=== PATIENT | female | born 1980 | race African-American/Black ===

== ENCOUNTER 2017-10-06 23:06 | Emergency (ER) | payer OTHER ==
[~2017-10-06] VITALS: Ht 157.5 cm; Wt 81.7 kg
[2017-10-07] MEDS ORDERED: IBUPROFEN 800800 M1 PO (01:04)
[2017-10-07 01:50] VITALS: BP 120/60
== END 2017-10-07 01:52 | disposition home or self-care (01) ==
LOC: ER 23:06
DX: J02.9 Acute pharyngitis, unspecified (principal)

== ENCOUNTER 2019-04-16 22:08 | Emergency (ER) | payer OTHER ==
[~2019-04-16] VITALS: Ht 167.6 cm; Wt 77.1 kg
[~2019-04-16 22:08] MED LIST: IBUPROFEN 800800 M1 PO
[2019-04-16 23:22] LABS: ABSOLUTE NEUTROPHILS 2.9 thou/uL (1.4-8.2); BASOPHILS 1.2 % (0.0-2.0); EOSINOPHILS 1.7 % (0.0-3.0); HEMATOCRIT 38.8 % (37.0-47.0); HEMOGLOBIN 13.2 gm/dL (12.0-15.0); LYMPHOCYTES 40.3 % (24.0-44.0); MCH 29.7 pg (26.0-34.0); MCHC 34.1 g/dL (28.0-37.0); MONOCYTES 5.1 % (1.0-8.0); PLATELET COUNT 271 thou/uL (150-400); POLYS 51.7 % (36.0-66.0); RBC 4.46 mil/uL (4.20-5.00); RDW 13.2 % (10.5-14.5); WBC 5.7 thou/uL (4.0-11.0)
[2019-04-16 23:26] LABS: ANION GAP 9 mmol/L (7-16); BUN 9 mg/dL (7-18); CALCIUM 9.4 mg/dL (8.5-10.1); CHLORIDE 103 mmol/L (98-107); CO2 27 mmol/L (21-32); CREATININE 0.8 mg/dL (0.6-1.0); GLUCOSE 88 mg/dL (74-106); POTASSIUM 3.5 mmol/L (3.5-5.1); SODIUM 139 mmol/L (136-145)
[2019-04-16 23:35] LABS: TROPONIN-I <0.06 ng/mL (<0.06)
[2019-04-17] MEDS ORDERED: IBU400 MG PO (00:35)
[2019-04-17] MEDS ORDERED: FLEXERIL PO (00:35)
[2019-04-17 00:45] VITALS: BP 117/74
--- NOTE | 2019-04-17 09:43 | EKG ---
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
== END 2019-04-17 00:46 | disposition home or self-care (01) ==
LOC: ER 22:08
PROVIDERS: Emergency Medicine Emergency Medical Services
DX: R07.89 Other chest pain (principal)